=== PATIENT | female | born 1945 | race Hispanic/Latino ===

== ENCOUNTER → 2016-12-25 | Outpatient (CLI) | payer OTHER ==
[2016-12-26 08:59] LABS: HEMOGLOBIN 14.6 g/dL (12.0-16.0)
[2016-12-26 09:03] LABS: HEMATOCRIT 44.5 % (37.0-47.0); MEAN CORPUSCULAR HEMOGLOBIN 28.7 PG (27-31); MEAN CORPUSCULAR HGB CONC 32.8 g/dL (33-37); RDW COEFFICIENT OF VARIATION 13.5 % (11.5-14.5); RED BLOOD COUNT 5.08 10^6/uL (4.20-5.40)
[2016-12-26 09:14] LABS: ASPARTATE AMINO TRANSFERASE 36 IU/L (8-39); BILIRUBIN,TOTAL 0.7 mg/dL (0.3-1.2); BLOOD UREA NITROGEN 34 mg/dL (7-22); BUN/CREATININE RATIO 22.66 (6-20); CALCIUM 10.2 mg/dL (8.7-10.7); CHLORIDE 105 meq/L (98-112); CREATININE 1.5 mg/dL (0.50-1.20); GLUCOSE 270 mg/dL (78-110); HDL CHOLESTEROL 60 mg/dL (40-150); POTASSIUM 4.9 meq/L (3.8-5.2); SODIUM 139 meq/L (135-145); TOTAL PROTEIN 7.1 g/dL (6.1-8.0); TRIGLYCERIDES 150 mg/dL (44-200)
[2016-12-26 09:32] LABS: HEMOGLOBIN A1C 10.44 % (4.2-6.0); MEAN BLOOD GLUCOSE (CALC) 261.652 mg/dL
[2016-12-26 09:39] LABS: PLATELET MORPHOLOGY COMMENT NORMAL MORPHOLOGY (NORM)
[2016-12-26 10:00] LABS: BAND NEUTROPHILS % 4 % (0-10); BASOPHILS % (MANUAL) 0 % (0-1); EOSINOPHILS % (MANUAL) 0 % (0-8); LYMPHOCYTES % (MANUAL) 28 % (10-50); METAMYELOCYTES % 0 %; MONOCYTES % (MANUAL) 6 % (0-12); MYELOCYTES % 0 %; NEUTROPHILS % (MANUAL) 61 % (50-80); PROMYELOCYTES % 0 %
== END ==
LOC: LAB 07:56
PROVIDERS: ATTEND Internal Medicine
DX: E11.9 Type 2 diabetes mellitus without complications (principal); E78.5 Hyperlipidemia, unspecified; I10 Essential (primary) hypertension
CPT/HCPCS: 36415; 80053; 80061; 83036; 84443; 85007

== ENCOUNTER → 2017-03-25 | Outpatient (CLI) | payer OTHER ==
[2017-03-25 08:35] LABS: HEMOGLOBIN A1C 8.61 % (4.2-6.0)
[2017-03-25 09:27] LABS: CREATININE, URINE 74.9 MG/DL (15-500)
== END ==
LOC: LAB 07:57
PROVIDERS: ATTEND Internal Medicine
DX: E11.9 Type 2 diabetes mellitus without complications (principal)
CPT/HCPCS: 36415; 82043; 83036

== ENCOUNTER → 2017-04-21 | Outpatient (CLI) | payer OTHER ==
[2017-04-21 13:49] LABS: BLOOD UREA NITROGEN 45 mg/dL (7-22); BUN/CREATININE RATIO 26.47 (6-20); CALCIUM 9.7 mg/dL (8.7-10.7); SERUM ALBUMIN 4.1 g/dL (3.5-4.8)
[2017-04-21 13:51] LABS: CLARITY,URINE SLIGHTLY CLOUDY (CLEAR); COLOR,URINE YELLOW; PH,URINE 5.5 (5.0-8.5); PROTEIN,URINE TRACE mg/dl (NEG); URINE SAMPLE TYPE VOIDED SPECIMEN
[2017-04-21 13:51] LABS: HEMATOCRIT 43.6 % (37.0-47.0); HEMOGLOBIN 14.1 g/dL (12.0-16.0); MEAN CORPUSCULAR VOLUME 88.4 FL (81-99); RED BLOOD COUNT 4.93 10^6/uL (4.20-5.40)
[2017-04-21 13:52] LABS: GLUCOSE, URINE (UA) >=1000 mg/dL (NEG); NITRATE,URINE NEGATIVE (NEG); OCCULT BLOOD,URINE NEGATIVE (NEG)
[2017-04-21 13:52] LABS: BASOPHILS # (AUTO) 0.05 10*3/UL; BASOPHILS % (AUTO) 0.4 % (0-1); EOSINOPHILS # (AUTO) 0.11 10*3/UL; EOSINOPHILS % (AUTO) 0.9 % (0-8); LYMPHOCYTES # (AUTO) 2.51 10*3/uL; MEAN CORPUSCULAR HEMOGLOBIN 28.6 PG (27-31); MEAN CORPUSCULAR HGB CONC 32.3 g/dL (33-37); MEAN PLATELET VOLUME 11.8 FL (7.4-12.2); MONOCYTES # (AUTO) 0.53 10*3/UL (0.3-0.8); MONOCYTES % (AUTO) 4.4 % (5-15); NEUTROPHILS # (AUTO) 8.72 10*3/UL; NEUTROPHILS % (AUTO) 73.1 % (50-80); PLATELET MORPHOLOGY COMMENT NORMAL MORPHOLOGY (NORM); RBC MORPHOLOGY COMMENT NORMAL MORPHOLOGY (NORM); WBC MORPHOLOGY COMMENT NORMAL MORPHOLOGY (NORM)
[2017-04-21 13:53] LABS: BILIRUBIN,URINE LARGE (NEG); SQUAMOUS EPITHELIAL CELL,UR FEW; URINE CASTS FEW; UROBILINOGEN,URINE 0.2 mg/dL (0.2); WBC,URINE 25-30
[2017-04-21 13:54] LABS: BACTERIA,URINE FEW
== END ==
LOC: MOB LAB 11:43
PROVIDERS: ATTEND Internal Medicine
DX: R10.32 Left lower quadrant pain (principal); I10 Essential (primary) hypertension; E78.5 Hyperlipidemia, unspecified; R82.99 Other abnormal findings in urine
CPT/HCPCS: 36415; 80053; 81001; 85025; 87088

== ENCOUNTER → 2017-05-01 | Outpatient (CLI) | payer OTHER ==
--- NOTE | 2017-05-01 14:49 | DI ---
CT ABDOMEN SCAN WITHOUT IV CONTRAST, 05/01/2017 2:01 PM : Clinical History: Abdominal pain. Previous Exam: None at this facility. Scans are performed from the lower lung bases through the liver and kidneys without IV contrast. No o ral contrast was ordered. The lung bases are clear. The liver, spleen, pancreas, and adrenal glands are normal. The gallbladder is grossly normal. Both kidneys are normal in size, shape, position and contour. There is no hydrone phrosis or hydroureter. No renal or ureteral calculi are present. There are no abnormal retrocrural o r periaortic nodes. There is no ascites. READING: Normal noncontrast CT abdomen scan.
== END ==
LOC: CT 13:54
PROVIDERS: ATTEND Internal Medicine
DX: R10.84 Generalized abdominal pain (principal)
CPT/HCPCS: 74150

== ENCOUNTER 2017-11-04 06:31 | Inpatient (IN) ==
[2017-11-04] MEDS ORDERED: Sodium Chloride 0.9% 1,000 ML PRIMARY IV ONE (06:48)
[2017-11-04] MEDS ORDERED: NORMAL SALINE 10 ML SYRINGE FLUSH IVP PRN (06:48)
[2017-11-04] MEDS ORDERED: ASPIRIN 81 MG (BABY) CHEWABLE TABLET PO ONE (06:48)
--- NOTE | 2017-11-04 06:51 | EKG ---
[address] [address] Measurements Intervals [place] Rate: 86 P: 50 AK: 183 QRS: -13 QRSD: 83 T: -8 QT: 338 QTc: 382 Interpretive Statements SINUS RHYTHM POSSIBLE RIGHT VENTRICULAR CONDUCTION DELAY [RSR (QR) IN V1/V2] SEPTAL MYOCARDIAL INFARCTION [40+ ms Q WAVE IN V1/V2], OF INDETERMINATE AGE INFERIOR MYOCARDIAL INFARCTION [40+ ms Q WAVE AND/OR ST/T ABNORMALITY IN II/aVF], OF INDETERMINATE AGE INTERPRETATION BASED ON A DEFAULT AGE OF 40 YEARS No previous ECG available for comparison Electronically Signed On 11-04-17 08:13:01 [facility] by Adolph Brower MD [email or web address]
[2017-11-04 06:55] LABS: Hematocrit [HCT] 43.4 % (37.0-47.0); Hemoglobin [HGB] 14.4 g/dL (12.0-16.0); MEAN CORPUSCULAR HEMOGLOBIN 29.2 PG (27-31); MEAN CORPUSCULAR HGB CONC 33.1 g/dL (33-37); MEAN CORPUSCULAR VOLUME 88 FL (81-99); MEAN PLATELET VOLUME 7.9 FL (7.4-12.2); RED BLOOD COUNT 4.92 10^6/uL (4.20-5.40)
[2017-11-04 06:56] LABS: BASOPHILS # (AUTO) 0.05 10*3/UL; BASOPHILS % (AUTO) 0.5 % (0-1); EOSINOPHILS # (AUTO) 0.24 10*3/UL; EOSINOPHILS % (AUTO) 2.5 % (0-8); MONOCYTES # (AUTO) 0.47 10*3/UL (0.3-0.8); MONOCYTES % (AUTO) 4.9 % (5-15); NEUTROPHILS # (AUTO) 6.15 10*3/UL; PLATELET MORPHOLOGY COMMENT NORMAL MORPHOLOGY (NORM); RBC MORPHOLOGY COMMENT NORMAL MORPHOLOGY (NORM); WBC MORPHOLOGY COMMENT NORMAL MORPHOLOGY (NORM)
[2017-11-04] MEDS: NITROGLYCERIN 0.4 MG SL TAB (BOTTLE OF 3) SL PRN ×3 (06:56→07:08)
--- NOTE | 2017-11-04 07:06 | PDOC ---
Chest Pain HPI - General Chief Complaint: Chest Pain Stated Complaint: chest pain Date Seen by Provider: 11/04/17 Time Seen by Provider: 06:40 Source: Patient Exam Limitations: POSITIVE: No limitations Treatment Prior to Arrival: REPORTS: None Nurse's Notes Reviewed & Considered: Yes - History of Present Illness Initial Comments: The patient is a 72-year-old female who presents to the emergency department with complaints of chest pain. She states that off and on for the past week or so she has had some pain in her lower chest. This morning when she woke up she had a sharper pain in her lower chest. This pain is somewhat worsened when she takes a deep breath. She does not have any associated palpitations, lightheadedness or shortness of breath. She tried to go to work however the pain seemed to be intensifying so she came here to the emergency department. She states that at its worst the pain was about an 8 out of 10. She states that the pain has let up somewhat now however she still has a pressure in the center of her chest. She does not have any known history of heart disease. She is diabetic and has a history of hypertension. She states that normally her blood pressure is well controlled on medication. She denies any recent illness and denies any pain or swelling in her legs. She states that her current pain started after Thanksgiving and she thought initially that she probably just ate too much and had some indigestion. - Patient Home Medications Home Medications: Home Medications Aspirin 81 mg ORAL QD #90 tab 12/18/12 Zyrtec 10 mg PO QD 30 Days 12/18/12 Albuterol Sulfate [Proventil Hfa] 1 - 2 puff INH Q4-6H #1 puff 05/22/16 Blood Sugar Diagnostic [Glucose Test Strip] 1 ea IN QID #120 ea 05/22/16 Lancing Device [Lancet Device] 1 ea QID #120 ea 05/22/16 Mometasone Furoate [Nasonex] 2 spr INASL DAILY #4 spr 05/22/16 acebutolol 200 mg capsule 200 mg PO QD #30 cap 08/11/17 canagliflozin 300 mg tablet 300 mg PO DAILY #30 tab 08/11/17 etodolac ER 500 mg tablet,extended release 24 hr 500 mg PO QD #30 tab 08/11/17 glipizide 10 mg tablet 20 mg PO BID #120 tab 08/11/17 hydrochlorothiazide 25 mg tablet 25 mg PO QD #30 tab 08/11/17 liraglutide 0.6 mg/0.1 mL (18 mg/3 mL) subcutaneous pen injector 1.8 mg SUBCUT DAILY #3 ml 08/11/17 metformin 1,000 mg tablet 1,000 mg PO BID #60 tab 08/11/17 montelukast 10 mg tablet 10 mg PO QD #30 tab 08/11/17 pantoprazole 40 mg tablet,delayed release 40 mg PO QD #30 tab 08/11/17 simvastatin 40 mg tablet 40 mg PO QHS #30 tab 08/11/17 losartan 100 mg tablet 100 mg PO QDAY #30 tab 09/08/17 pen needle, diabetic 31 gauge x /16" 2 ea MISCELLANEOUS QD #100 ea 09/08/17 insulin degludec 100 unit/mL (3 mL) subcutaneous pen 20 unit SUBCUT QHS #600 unit 09/16/17 - Patient Allergies Allergies/Adverse Reactions: Allergies 3 Allergy/AdvReac Type Severity Reaction Status Date / Time No Known Drug Allergies Allergy NOT Verified 11/04/17 06:39 APPLICABLE Past Medical History - heen HEENT History: Cataracts Cardiovascular History: Hypertension, Hyperlipidemia Respiratory History: Denies History Gastrointestinal History: Denies History Genitourinary History: Denies History Endocrine History: Type 2 Diabetes (oral) Musculoskeletal History: Denies History Neurological History: Motion Sickness Blood Disorders: Denies History Psychiatric History: Denies History Cancer History: Denies History Alcohol Use: None In the Past 12 Months, Have Used or Abuse Any Substance: None Past Medical History Reviewed: Reviewed - No Changes ROS - Limitations ROS Limitations: No Limitations Constitution: DENIES: Chills, Fever Cardiovascular: REPORTS: Chest Pain. DENIES: Heart Racing, Heart Palpitations, Blood Pressure Problem, Edema Respiratory: REPORTS: Hurts To Breathe. DENIES: Cough Non Productive, Cough Productive, Shortness Of Breath Neurological: REPORTS: Denies Neuro Symptoms Gastrointestinal: REPORTS: Nausea. DENIES: Vomitting, Diarrhea Endocrine: REPORTS: Denies Symptoms Musculoskeletal: DENIES: Calf Pain, Lower Extremity Swelling Chest Pain PE - General Appearance General Appearance: REPORTS: Alert, Cooperative, No Acute Distress - HEENT HEENT: POSITIVE: Head Inspection Nml, Eyes Inspection Nml, Ears Inspection Nml - Respiratory Respiratory: REPORTS: No Respiratory Distress, Breath Sounds Normal - Cardiovascular Cardiovascular: REPORTS: Regular Rate and Rhythm, Heart Sounds Normal Peripheral Pulses: Dorsalis-pedis (R): 2+, Dorsalis-pedis (L): 2+ - Abdomen Abdomen: Soft: (All Quadrants), Denies Tenderness: (All Quadrants), No Distention: (All Quadrants) - Skin Skin: REPORTS: Intact, No Rash - Extremities Extremity: Normal ROM: (All Extremities), Normal Inspection: (All Extremities) - Neurological / Psychological Neurological: POSITIVE: Oriented X3, Motor Normal, Sensation Normal Chest Pain Progress - Results Reviewed by me Xrays/CTs/US Reviewed by me: Yes Radiology Findings: Chest x-ray shows normal heart size and normal lung barillas. Lab Results Reviewed by Me: Yes CBC and BMP: 11/04/17 06:48 11/04/17 06:40 EKG Interpreted/Reviewed By Me:: Yes EKG Interpretation:: POSITIVE: Normal Sinus Rhythm, Normal Rate, Normal QRS, Normal ST/T - Patient's Progress MDM / ED Course: The patient was hypertensive on arrival with a blood pressure of 180/108. Her initial EKG shows normal sinus rhythm with no acute ST segment changes, she does have some Q waves in the inferior leads, no previous EKGs are available for comparison. She was given aspirin per chest pain protocol and in addition was given sublingual nitroglycerin. Her pain improved down to a 1 out of 10 and her blood pressure came down with administration of nitroglycerin. Her initial troponin is normal. Her d-dimer is slightly elevated. Her creatinine is also borderline at 1.3. She did receive a fluid bolus and she underwent CTA of the chest to rule out PE. This was subsequently negative for PE per radiologist. No other acute findings were noted. These findings were discussed with the patient. The patient does have multiple risk factors for coronary artery disease and it was felt that the best plan would be for admission and further cardiac monitoring and testing. Dr. Rubin has agreed to admit the patient. - Consult Counseled: POSITIVE: Patient, Family, RE: Lab Results, RE: Radiology Results, RE : DX Patient Care Time - Estimated PCT Patient Care Time (In Minutes): 40 Vital Signs - Recent Vital Signs Vital Signs: Vital Signs (Last 8 hours) Temp Pulse Pulse Pulse Pulse Resp BP 11/04/17 06:42 86 11/04/17 06:31 98.2 F 86 80 86 86 20 182/100 Pulse Ox 11/04/17 06:42 11/04/17 06:31 97 - VS Reviewed Vital Signs Reviewed: Yes Discharge Clinical Impression: Chest pain Discharge Disposition: Admit to Observation Condition: Stable Follow Up With: JOHN BROCK [Primary Care Provider] -
[2017-11-04 07:18] LABS: BLOOD UREA NITROGEN 28 mg/dL (7-22); BUN/CREATININE RATIO 21.53 (6-20); LIPASE 119 IU/L (23-300); MAGNESIUM 1.8 mg/dL (1.6-2.4); SERUM ALBUMIN 4.2 g/dL (3.5-4.8)
--- NOTE | 2017-11-04 08:10 | DI ---
XR CXR 1VW,11/04/2017 6:48 AM: Clinical History: Chest pain Previous Exam: None at this facility. Findings: A single frontal radiograph of the chest is obtained, and demonstrates clear lungs. The cardiomediast inum and bony thorax are unremarkable. Overlying EKG leads are seen. Mild degenerative changes of the acromioclavicular joints are noted. Impression: No acute cardiopulmonary disease.
--- NOTE | 2017-11-04 08:43 | DI ---
CT CTA Chest Non-Coronary [facility],11/04/2017 7:46 AM: Clinical History: Chest pain and elevated d-dimer. Previous Exam: None at this facility. Findings: Multiple helically acquired CT images are obtained through the chest following the intravenous admini stration of 75 cc of Isovue 370, and demonstrate some mild subsegmental atelectasis in the lung bases . The pulmonary arteries are normal without filling defect or truncation to suggest pulmonary embolis m. The thyroid is also unremarkable. Skeletal structures are unremarkable as well. There is no infiltrate nor effusion. Impression: No evidence of pulmonary embolism.
--- NOTE | 2017-11-04 09:16 | PDOC ---
HPI - History of Present Illness History of Present Illness: This very nice 72-year-old female with past medical history significant for diabetes on multiple medications orally and insulin comes to the emergency room complaining of chest pain this morning when she woke up she had a sharp pain which got worse when she took a deep breath no nausea no vomiting no palpitation no lightheadedness the pain is continuously got worse and decided to go to the emergency department. She was given nitroglycerin because of her elevated blood pressure she does have a history of hypertension the pain is improved Past Medical History Medical History: Hypertension, diabetes Tobacco Use: Never Smoker In the Past 12 Months, Have Used or Abuse Any of the Following Substance: None Medication / Allergies Home Medications: Home Medications Medication Instructions Recorded Confirmed Type Aspirin 81 mg ORAL QD #90 tab 12/18/12 11/04/17 History Zyrtec 10 mg PO QD 30 Days 12/18/12 11/04/17 Clinic Albuterol Sulfate [Proventil Hfa] 1 - 2 puff INH Q4-6H #1 puff 05/22/16 History Blood Sugar Diagnostic [Glucose 1 ea IN QID #120 ea 05/22/16 11/04/17 History Test Strip] Lancing Device [Lancet Device] 1 ea MC QID #120 ea 05/22/16 11/04/17 History Mometasone Furoate [Nasonex] 2 spr INASL DAILY #4 spr 05/22/16 11/04/17 History acebutolol 200 mg capsule 200 mg PO QD #30 cap 08/11/17 11/04/17 Rx canagliflozin 300 mg tablet 300 mg PO DAILY #30 tab 08/11/17 11/04/17 Rx etodolac ER 500 mg tablet,extended 500 mg PO QD #30 tab 08/11/17 11/04/17 Rx release 24 hr glipizide 10 mg tablet 20 mg PO BID #120 tab 08/11/17 11/04/17 Rx hydrochlorothiazide 25 mg tablet 25 mg PO QD #30 tab 08/11/17 11/04/17 Rx liraglutide 0.6 mg/0.1 mL (18 mg/3 1.8 mg SUBCUT DAILY #3 ml 08/11/17 11/04/17 Rx mL) subcutaneous pen injector metformin 1,000 mg tablet 1,000 mg PO BID #60 tab 08/11/17 11/04/17 Rx montelukast 10 mg tablet 10 mg PO QD #30 tab 08/11/17 11/04/17 Rx pantoprazole 40 mg tablet,delayed 40 mg PO QD #30 tab 08/11/17 11/04/17 Rx release simvastatin 40 mg tablet 40 mg PO QHS #30 tab 08/11/17 11/04/17 Rx losartan 100 mg tablet 100 mg PO QDAY #30 tab 09/08/17 11/04/17 Rx pen needle, diabetic 31 gauge x 2 ea MISCELLANEOUS QD #100 ea 09/08/17 11/04/17 Rx 5/16" insulin degludec 100 unit/mL (3 20 unit SUBCUT QHS #600 unit 09/16/17 11/04/17 Rx mL) subcutaneous pen insulin glargine 300 unit/mL (1.5 #2 Samples 09/16/17 Sample mL) subcutaneous pen Allergies/Adverse Reactions: Allergies 3 Allergy/AdvReac Type Severity Reaction Status Date / Time No Known Drug Allergies Allergy NOT Verified 11/04/17 06:39 APPLICABLE Review of Systems - Review of Systems All Systems: Reviewed & No Additional Complaints Except as Stated - Cardiovascular Cardiovascular: REPORTS: Chest Pain - Gastrointestinal Gastrointestinal / Abdominal: DENIES: Negative System Review, Nausea, Vomiting, Diarrhea, Constipation, Abdominal Pain, Bloody Stool, Poor Appetite, Heartburn, Regurgitation, Bloating, Lactose Intolerance, Melena, Bright Red Blood per Rectum, Other, See HPI - Genitourinary Genitourinary: DENIES: Negative System Review, Pain, Burning, Hematuria, Incontinence, Urgency, Hesitant Stream, Decreased Stream, Nocutria, Discharge, Sexual Dysfunction, Other, See HPI Exam - Vitals Vital Signs: Vital Signs Temperature 98.2 F Temperature Source Temporal Artery Scan Pulse Rate [Pulse Oximeter 86 Right] Pulse Rate [Apical] 80 Pulse Rate [Telemetry] 86 Pulse Rate 86 Respiratory Rate 20 Blood Pressure [Left Arm] 182/100 Pulse Ox 97 Oxygen Delivery Method Room Air Height 5 ft 3 in Weight 200 lb - General General Appearance: No Acute Distress, Cooperative - Eye Eye Exam: POSITIVE: Normal Appearance, PERRL, EOMI, No Scleral Icterus - Neck Neck Exam: Normal Inspection, Full ROM, No Tenderness, No Lymphadenopathy, No Thyromegaly, JVP is not Raised - Respiratory Respiratory Exam: POSITIVE: Clear to Auscultation - Bilaterally, Breathing Non Labored, Normal To Percussion, Normal to Percussion and Palpation - Cardiovascular Cardiovascular Exam: POSITIVE: RRR, No Murmur, No Clicks, No Gallops, No Rubs, PMI Non-Displaced - GI/Abdominal GI/Abdominal Exam: POSITIVE: Normal Bowel Sounds, Non Tender, Non Distended, Soft, No Masses, No Hepatomegaly, No Splenomegaly, No Organomegaly - Extremities Extremities Exam: POSITIVE: Normal Inspection, Full ROM, Normal Capillary Refill , No Clubbing Present, No Edema Present, No Cyanosis Present, Negative Alden's sign, Dosalis Pedis Pulses - Stong & Regular Results - Labs CBC and BMP: 11/04/17 06:48 11/04/17 06:40 Assessment and Plan - Patient Problems (1) HILL (acute kidney injury) Current Visit: Yes Status: Acute Comment: hold diabetic meds Invokana can cause acute renal failure also she will need a Lexiscan stress test and will be receiving dye will need to fix creatinine and BUN before we will order stress test. Code(s): N17.9 - Acute kidney failure, unspecified (2) Diabetes 1.5, managed as type 1 Current Visit: Yes Status: Acute Comment: Hold the all oral medications as they can cause side effects like acute renal failure we'll start sliding scale Code(s): E10.9 - Type 1 diabetes mellitus without complications (3) Chest pain Current Visit: Yes Status: Acute Comment: Suggest once the renal function is improved Code(s): R07.9 - Chest pain, unspecified
[2017-11-04] MEDS ORDERED: ONDANSETRON 4 MG/2 ML VIAL IVP PRN (09:46)
[2017-11-04] MEDS ORDERED: CALCIUM CARBONATE 500 MG (TUMS) CHEWABLE TABLET PO PRN (09:46)
[2017-11-04] MEDS ORDERED: LIDOCAINE W/ SODIUM BICARB 0.5 ML SYR SUBD PRN (09:46)
[2017-11-04] MEDS: ASPIRIN 81 MG (BABY) CHEWABLE TABLET PO SCH (12:18)
[2017-11-04] MEDS: HYDROCHLOROTHIAZIDE 25 MG TABLET PO SCH (12:18)
[2017-11-04] MEDS: ACEBUTOLOL HCL 200 MG PO SCH (12:18)
[2017-11-04] MEDS: PANTOPRAZOLE 40 MG TABLET PO SCH (12:19)
[2017-11-04] MEDS: NORMAL SALINE 10 ML SYRINGE FLUSH IVP PRN (12:45)
[2017-11-04] MEDS: Simvastatin Tab 40 MG TAB PO SCH (20:42)
[2017-11-04] MEDS: [UNRECOGNIZED DRUG - OTHER] SUBCUT SCH (20:42)
[2017-11-05 07:18] LABS: BLOOD UREA NITROGEN 20 mg/dL (7-22); SERUM ALBUMIN 3.3 g/dL (3.5-4.8)
--- NOTE | 2017-11-05 08:34 | PDOC(PROG) ---
Objective : Data - Labs CBC and BMP: 11/04/17 06:48 11/05/17 06:52 Assessment and Plan - Patient Problems (1) HILL (acute kidney injury) Current Visit: Yes Status: Acute Comment: Resolved most likely prerenal I will stop IV fluids were K Code(s): N17.9 - Acute kidney failure, unspecified (2) Diabetes 1.5, managed as type 1 Current Visit: Yes Status: Acute Comment: Stable Code(s): E10.9 - Type 1 diabetes mellitus without complications (3) Chest pain Current Visit: Yes Status: Acute Comment: Pollens are negative 3 I will talk to the patient about her stress test since we are unable to do a Lexiscan stress test tomorrow Code(s): R07.9 - Chest pain, unspecified
[2017-11-05] MEDS ORDERED: MOMETASONE FUROATE ENOS PRN (09:00)
[2017-11-05] MEDS ORDERED: MOMETASONE FUROATE ENOS SCH (09:00)
[2017-11-05] MEDS: HYDROCHLOROTHIAZIDE 25 MG TABLET PO SCH (09:40)
[2017-11-05] MEDS: ASPIRIN 81 MG (BABY) CHEWABLE TABLET PO SCH (09:40)
[2017-11-05] MEDS: PANTOPRAZOLE 40 MG TABLET PO SCH (09:41)
[2017-11-05] MEDS: ACEBUTOLOL HCL 200 MG PO SCH (09:51)
[2017-11-05] MEDS ORDERED: Glucagon Inj Vial 1 MG/ML VIAL IM PRN ×2 (11:27→17:26)
[2017-11-05] MEDS ORDERED: DEXTROSE 31 GM GEL PO PRN ×2 (11:27→17:26)
[2017-11-05] MEDS ORDERED: DEXTROSE 50%-WATER SYRINGE 50 ML SYRINGE IVP PRN ×2 (11:27→17:26)
[2017-11-05] MEDS ORDERED: Insulin Sliding Scale Protocol SUBCUT PRN ×2 (11:27→17:26)
[2017-11-05] MEDS ORDERED: Insulin Lispro Flexpen 300 UNIT/3 ML INSULN.PEN SUBCUT SCH ×2 (11:28→18:00)
[2017-11-05] MEDS ORDERED: Influenza 17-18 Vaccine (6mo+) Quad 60mcg/0.5ml PF IM ONE (14:00)
[2017-11-05] MEDS: Sodium Chloride 0.9% 1,000 ML PRIMARY IV SCH (17:17)
[2017-11-05] MEDS: Simvastatin Tab 40 MG TAB PO SCH (21:14)
[2017-11-05] MEDS: Insulin Lispro Flexpen 300 UNIT/3 ML INSULN.PEN SUBCUT SCH (21:26)
[2017-11-05] MEDS: [UNRECOGNIZED DRUG - OTHER] SUBCUT SCH (21:30)
[2017-11-06] MEDS: Sodium Chloride 0.9% 1,000 ML PRIMARY IV SCH (06:07)
[2017-11-06 06:46] LABS: BLOOD UREA NITROGEN 19 mg/dL (7-22); SERUM ALBUMIN 3.4 g/dL (3.5-4.8)
[2017-11-06] MEDS: Insulin Lispro Flexpen 300 UNIT/3 ML INSULN.PEN SUBCUT SCH ×4 (08:20→20:31)
[2017-11-06] MEDS: ACEBUTOLOL HCL 200 MG PO SCH (09:30)
[2017-11-06] MEDS: HYDROCHLOROTHIAZIDE 25 MG TABLET PO SCH (09:32)
[2017-11-06] MEDS: ASPIRIN 81 MG (BABY) CHEWABLE TABLET PO SCH (09:32)
[2017-11-06] MEDS: PANTOPRAZOLE 40 MG TABLET PO SCH (09:33)
--- NOTE | 2017-11-06 18:59 | DI ---
EXAM: US Abdomen Limited, Right Upper Quadrant CLINICAL HISTORY: Physician Notes: Tech Comments: TECHNIQUE: Real-time ultrasound of the right upper quadrant with image documentation. COMPARISON: CT 05/01/17 FINDINGS: Liver: Hepatomegaly, 19.8 cm. Echogenic liver suggesting fatty infiltration or hepatocellular disease. Gallbladder: No gallstones or biliary ductal dilatation. Common bile duct: Unremarkable as visualized. Common bile duct measures 4 mm Pancreas: Pancreas is obscured. Right kidney: Right kidney measures 10.6 cm. No hydronephrosis. Aorta: Limited assessment. No apparent aneurysm. IMPRESSION: Hepatomegaly, 19.8 cm. Echogenic liver suggesting fatty infiltration or hepatocellular disease. No gallstones or biliary ductal dilatation.
[2017-11-06] MEDS: Simvastatin Tab 40 MG TAB PO SCH (20:30)
[2017-11-06] MEDS: [UNRECOGNIZED DRUG - OTHER] SUBCUT SCH (20:31)
--- NOTE | 2017-11-06 23:46 | PDOC(PROG) ---
Date and Time of Service: 11/06/2017, 1700 Interval History: had some epigastric/low chest pain described as mild present this afternoon. no SOB, no nausea or vomiting. willing to do a stress test here. Objective : Data - Labs CBC and BMP: 11/04/17 06:48 11/06/17 05:36 Additional Lab Results: Selected Entries 11/05/17 06:52 11/05/17 11:00 11/05/17 21:00 Finger Stick Blood Glucose 194 H 253 H 335 H 11/06/17 07:00 11/06/17 12:37 11/06/17 16:00 Finger Stick Blood Glucose 211 H 257 H 181 H Objective : Exam - General General Appearance: No Acute Distress, Cooperative Additional General Exam Details: Vital Signs (24 hrs) Temp Pulse Pulse Pulse Resp BP Pulse Ox 11/06/17 20:40 97.8 F 72 20 147/68 96 11/06/17 19:00 72 77 11/06/17 17:00 97.5 F 70 20 161/68 98 11/06/17 15:00 71 11/06/17 13:00 97.7 F 73 20 157/81 99 11/06/17 11:00 72 11/06/17 09:00 97.6 F 72 20 126/64 96 11/06/17 07:00 65 11/06/17 05:00 97.7 F 70 14 130/69 96 11/06/17 03:00 70 11/06/17 00:30 97.2 F 76 22 152/77 97 - Eye Eye Exam: No Scleral Icterus - ENT ENT Exam: Mucous Membranes Moist - Respiratory Respiratory Exam: Clear to Auscultation - Bilaterally, Breathing Non Labored - Cardiovascular Cardiovascular Exam: RRR, No Murmur, No Clicks, No Gallops, No Rubs, No JVD Additional Cardiovascular Details: pain is not reproduced with palpation. - GI/Abdominal GI/Abdominal Exam: Normal Bowel Sounds, Non Tender, Non Distended, Soft - Extremities Extremities Exam: No Clubbing Present, No Edema Present, No Cyanosis Present - Neurological Neurological Exam: Alert, Oriented x 3, No Facial Droop, Speech Intact / Clear, Moves All Extremities Equally - Psychiatric Psychiatric Exam: Normal Affect, Normal Mood Assessment and Plan - Patient Problems (1) Chest pain Current Visit: Yes Status: Acute Code(s): R07.9 - Chest pain, unspecified (2) HILL (acute kidney injury) Current Visit: Yes Status: Resolved Code(s): N17.9 - Acute kidney failure, unspecified (3) Diabetes 1.5, managed as type 1 Current Visit: Yes Status: Acute Code(s): E10.9 - Type 1 diabetes mellitus without complications (4) HTN (hypertension) Current Visit: Yes Status: Acute Code(s): I10 - Essential (primary) hypertension Qualifiers: Hypertension type: essential hypertension Qualified Code(s): I10 - Essential (primary) hypertension - Assessment / Plan Additional Assessment/Plan Details: may need to adjust insulins, but will also recheck HbA1c check fasting lipids in AM stress test (chemical stress test) patient wondered about GERD, I got an ultrasound to check for cholecystitis ( acute) and it was suggestive of fatty liver disease. It could be reflux, but heartburn symptoms not prevalent for patient overall. I would like to make sure we are not seeing evidence for CAD first, then consider PPI trial.
[2017-11-07 06:42] LABS: HEMOGLOBIN A1C 8.82 % (4.2-6.0)
[2017-11-07] MEDS: Insulin Lispro Flexpen 300 UNIT/3 ML INSULN.PEN SUBCUT SCH ×4 (07:27→20:10)
[2017-11-07] MEDS: ACEBUTOLOL HCL 200 MG PO SCH (09:36)
[2017-11-07] MEDS: HYDROCHLOROTHIAZIDE 25 MG TABLET PO SCH (09:37)
[2017-11-07] MEDS: PANTOPRAZOLE 40 MG TABLET PO SCH (09:37)
[2017-11-07] MEDS: ASPIRIN 81 MG (BABY) CHEWABLE TABLET PO SCH (09:37)
[2017-11-07] MEDS ORDERED: LORazepam 2 MG/1 ML VIAL IVP ONE (09:54)
[2017-11-07 10:45] LABS: CHOL/HDL RATIO 2.6 RATIO (0-4.0)
[2017-11-07] MEDS: NORMAL SALINE 10 ML SYRINGE FLUSH IVP PRN (11:24)
[2017-11-07] MEDS: Simvastatin Tab 40 MG TAB PO SCH (20:06)
[2017-11-07] MEDS: [UNRECOGNIZED DRUG - OTHER] SUBCUT SCH (20:06)
[2017-11-07] MEDS ORDERED: INSULIN DEGLUDEC 25 UNIT SUBCUT SCH (20:40)
--- NOTE | 2017-11-07 20:44 | PDOC(PROG) ---
Date and Time of Service: 11/07/2017, 2039 Interval History: seen and evalutated twice today. has had some pressure that has gotten better in mid epigastric area, lower sternal region. no N/V. SOB is not present. wants a clear list or plan for DM and is okay using insulin to cut down pill burden. Objective : Data - Labs CBC and BMP: 11/04/17 06:48 11/06/17 05:36 Additional Lab Results: Selected Entries 11/07/17 06:55 11/07/17 10:57 11/07/17 16:00 Finger Stick Blood Glucose 201 H 240 H 287 H Objective : Exam - General General Appearance: No Acute Distress, Cooperative Additional General Exam Details: Vital Signs (24 hrs) Temp Pulse Pulse Pulse Resp BP Pulse Ox 11/07/17 19:00 77 66 11/07/17 16:08 98.0 F 77 16 142/79 95 11/07/17 15:00 76 11/07/17 12:47 96.8 F 74 18 142/85 95 11/07/17 11:00 76 11/07/17 09:27 228/88 11/07/17 08:29 98.2 F 71 18 158/72 96 11/07/17 07:00 67 66 11/07/17 04:13 98.4 F 72 20 141/92 93 11/07/17 03:00 74 11/07/17 00:32 98.0 F 70 16 145/60 96 11/06/17 23:00 69 - Eye Eye Exam: No Scleral Icterus - ENT ENT Exam: Mucous Membranes Moist - Respiratory Respiratory Exam: Clear to Auscultation - Bilaterally, Breathing Non Labored - Cardiovascular Cardiovascular Exam: RRR, No Murmur, No Clicks, No Gallops, No Rubs, No JVD - GI/Abdominal GI/Abdominal Exam: Normal Bowel Sounds, Non Tender, Non Distended, Soft - Extremities Extremities Exam: No Clubbing Present, No Edema Present, No Cyanosis Present - Neurological Neurological Exam: Alert, Oriented x 3, No Facial Droop, Speech Intact / Clear, Moves All Extremities Equally - Psychiatric Psychiatric Exam: Normal Affect, Normal Mood Assessment and Plan - Patient Problems (1) Chest pain Current Visit: Yes Status: Acute Code(s): R07.9 - Chest pain, unspecified (2) HILL (acute kidney injury) Current Visit: Yes Status: Resolved Code(s): N17.9 - Acute kidney failure, unspecified (3) Diabetes 1.5, managed as type 1 Current Visit: Yes Status: Acute Code(s): E10.9 - Type 1 diabetes mellitus without complications (4) HTN (hypertension) Current Visit: Yes Status: Acute Code(s): I10 - Essential (primary) hypertension Qualifiers: Hypertension type: essential hypertension Qualified Code(s): I10 - Essential (primary) hypertension - Assessment / Plan Additional Assessment/Plan Details: increase long acting insulin will adjust meds accordingly, may still benefit from metformin, but caution with renal disease. resting phase of stress test tomorrow and await results. await lipid results.
[2017-11-08] MEDS ORDERED: LORazepam 2 MG/1 ML VIAL IVP SCH (01:15)
[2017-11-08] MEDS: Insulin Lispro Flexpen 300 UNIT/3 ML INSULN.PEN SUBCUT SCH ×2 (07:05→11:17)
[2017-11-08] MEDS: PANTOPRAZOLE 40 MG TABLET PO SCH (08:50)
[2017-11-08] MEDS: ASPIRIN 81 MG (BABY) CHEWABLE TABLET PO SCH (08:51)
[2017-11-08] MEDS: HYDROCHLOROTHIAZIDE 25 MG TABLET PO SCH (08:51)
[2017-11-08] MEDS: ACEBUTOLOL HCL 200 MG PO SCH (08:51)
[2017-11-08 08:52] VITALS: RESP 20
[2017-11-08] MEDS: NORMAL SALINE 10 ML SYRINGE FLUSH IVP PRN (10:20)
[2017-11-08 12:01] VITALS: BP 135/77; TEMP 98.4; O2SAT 93
--- NOTE | 2017-11-08 13:45 | DI ---
Exam: NM OTHER HISTORY: Chest pain TECHNIQUE: Lexiscan stress test imaging of the heart was performed with 0.4 mg per 5 cc of Lexiscan administered. Subsequently 37.3 mCi of sestamibi technetium 99m was administered for the stress dose. Multi planar imaging and axial vertical horizontal planes were obtained. 24 hours later rest imaging was performed with 34.8 mCi of sestamibi technetium 99m with 3 plane imaging obtained. COMPARISON EXAM: No prior examinations available. FINDINGS: In the lateral wall from the mid segment to base there is partial decreased perfusion on the stress images which is demonstrating partial reversibility on the rest portion of the study. At the apex there is partial decreased perfusion on the stress images however on the rest images the appearance of decreased perfusion is more pronounced. No other defects identified. Ejection fraction calculated at 79%. Wall motion appears normal. CONCLUSION: 1. In the lateral wall at the mid segment to base there is partial decreased perfusion on the stress images which is demonstrating partial reversibility on the rest portion of the study. 2. Small partial decreased perfusion appearance at the apex on the stress images however the rest images demonstrated this region to have them more pronounced perfusion defect. This does not appear to represent a reversible defect though there is decreased perfusion appearance at the apex on the stress study. 3. No other reversible or fixed defects. 4. Ejection fraction 79%. Normal wall motion. Critical [employer] 11/08/17 13:51 Verify Receipt with Nurse Verified receipt with BUSTER Charles on for LEXY [place] on 11/08 13:49 (-07:00)
--- NOTE | 2017-11-08 15:00 | DCSUMMARY ---
Hospitalization Summary Admit Date: 11/04/2017 Discharge Date: 11/08/17 Primary Diagnosis:: probable coronary artery disease with positive stress te Secondary Diagnosis:: Acute renal failure, resolved Hospital Course: This is a very pleasant 72-year-old female that was admitted on November 04 with complaints of chest pain and pressure that started at work during her work activities. 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 When she came in for evaluation, she is found to be hypertensive, and mild renal failure, and was admitted for further evaluation. She had several medications stopped due to her renal insufficiency and as that improved, we thought of potentially doing an outpatient stress test but the pressure came back. She had pressure in the mid epigastrium and lower substernal region. We did do a Lexiscan stress test which was positive for lateral wall motion abnormalities and possible apex abnormalities as well. The apex abnormalities might be an artifact. However, there were decreased perfusions on the rest images that were larger on that than the stress images which makes it somewhat questionable at the apex. That being said, with the positive findings in the lateral wall, the patient's presentation overall, her risk factors including diabetes mellitus type II, hypertension, we felt it would be best for the patient to proceed with heart catheterization with cardiology. I spoke with Dr. Wong at [facility] and he agreed to accept the patient. The patient would really like to work towards reducing her dependence on diabetes pills and using insulin as much as possible for her diabetes control to do that if possible. A CT scan of the chest was negative for PE. RUQ ultrasound was negative for acute cholecystitis, but the patient may have fatty liver disease. Patient's cholesterol is well-controlled with LDLs at 76. In discussion with Dr. Wong, we will hold off on heparinizing until the patient is at [facility]. Today, the patient denies any chest pain, shortness breath, nausea or vomiting. The plan above was discussed with her, and her 2 sons and they all agreed. Assessment and Plan: 1. As per discharge assessments noted 2. Disposition: Patient is discharged to [facility] 3. Condition on discharge, stable and improved. 4. Diet: regular diet 5. Activities: As per [facility] 6. Follow-Up: 1. Dr. Franco on 11/19/2017 2. 7. Medications at the Time of Discharge: Active Medications Generic Name Dose Route Start Last Admin Trade Name Freq PRN Reason Stop Dose Admin Aspirin 81 mg 11/04/17 09:46 11/08/17 08:51 Aspirin Chewable Tab PO 81 mg DAILY ANGELICA Administration Calcium Carbonate 1 - 2 tab 11/04/17 09:46 Tums PO QID PRN Heartburn Dextrose 30 - 40 ml 11/05/17 17:26 Dextrose 50% Inj IVP Q15M PRN BG < 70 unable to take oral Glucagon 1 mg 11/05/17 17:26 Glucagen IM ONCE PRN BG < 70 NPO & NO IV Glucose 15 - 20 gm 11/05/17 17:26 Insta-Glucose Gel PO Q15M PRN BG < 70 Hydrochlorothiazide 25 mg 11/04/17 09:46 11/08/17 08:51 Hydrodiuril PO 25 mg DAILY ANGELICA Administration Insulin Human Lispro 0 - 14 unit 11/05/17 21:00 11/08/17 11:17 Humalog Flexpen Inj SUBCUT 10 unit AC HS ANGELICA Administration Protocol Lidocaine HCl 0.5 ml 11/04/17 09:46 Lidocaine Buffered Inj SUBD ONCE PRN IV Starts Lorazepam 1 mg 11/08/17 01:15 11/08/17 10:21 Ativan Inj IVP 1 mg ONCE ANGELICA Administration Own Med : Acebutolol 200 mg 11/04/17 09:46 11/08/17 08:51 Hcl 200 Mg PO 200 mg DAILY ANGELICA Administration Own Med : Mometasone 2 spr 11/05/17 09:00 Furoate [Nasonex] [place] Nasal [place] DAILY PRN Congestion Non-Formulary Medication 25 unit 11/07/17 20:40 11/07/17 21:19 Insulin Degludec [Tresiba Flextouch U-100] SUBCUT Not Given BEDTIME ANGELICA Ondansetron HCl 4 mg 11/04/17 09:46 Zofran Inj IVP Q4H PRN NAUSEA / VOMITING Pantoprazole Sodium 40 mg 11/04/17 09:46 11/08/17 08:50 Protonix PO 40 mg DAILY ANGELICA Administration Simvastatin 40 mg 11/04/17 21:00 11/07/17 20:06 Zocor PO 40 mg BEDTIME ANGELICA Administration Sodium Chloride 5 - 20 ml 11/04/17 09:46 11/08/17 10:20 Saline Flush IVP 10 ml BID PRN Administration Flush 8. Time, care, counseling and coordination of care for this discharge is greater than 30 minutes. Exam - Vitals Vital Signs: Vital Signs Temperature 98.4 F Temperature Source Temporal Artery Scan Pulse Rate [Pulse Oximeter 71 Right] Pulse Rate [Telemetry] 76 Pulse Rate 69 Respiratory Rate 20 Blood Pressure [Left Arm] 135/77 Pulse Ox 93 Oxygen Delivery Method Room Air Height 5 ft 3 in Weight 203 lb 9.6 oz - General General Appearance: No Acute Distress, Cooperative - Eye Eye Exam: POSITIVE: No Scleral Icterus - ENT ENT Exam: POSITIVE: Mucous Membranes Moist - Respiratory Respiratory Exam: POSITIVE: Clear to Auscultation - Bilaterally, Breathing Non Labored - Cardiovascular Cardiovascular Exam: POSITIVE: RRR, No Murmur, No Clicks, No Gallops, No Rubs, No JVD - GI/Abdominal GI/Abdominal Exam: POSITIVE: Normal Bowel Sounds, Non Tender, Non Distended, Soft - Extremities Extremities Exam: POSITIVE: No Clubbing Present, No Edema Present, No Cyanosis Present - Neurological Neurological Exam: POSITIVE: Alert, Oriented x 3, No Facial Droop, Speech Intact / Clear, Moves All Extremities Equally Data Peritnent Studies: 11/04/17 11/04/17 11/05/17 12:58 18:41 00:33 Sodium Potassium Chloride Carbon Dioxide Anion Gap BUN Creatinine Glucose Mean Blood Glucose Hemoglobin A1c Calcium Total Bilirubin AST ALT Alkaline Phosphatase Troponin I < 0.012 < 0.012 < 0.012 Total Protein Albumin Globulin Triglycerides Cholesterol LDL Cholesterol, Calc VLDL Cholesterol HDL Cholesterol Cholesterol/HDL Ratio TSH 11/05/17 11/06/17 11/06/17 06:52 05:30 05:36 Sodium 139 Potassium 4.6 Chloride 108 Carbon Dioxide 20 L Anion Gap 11 BUN 19 Creatinine 1.0 Glucose 195 H Mean Blood Glucose 207.706 Hemoglobin A1c 8.82 H Calcium 9.3 Total Bilirubin 0.7 AST 29 ALT 35 Alkaline Phosphatase 86 Troponin I Total Protein 6.3 Albumin 3.4 L Globulin 2.9 Triglycerides Cholesterol LDL Cholesterol, Calc VLDL Cholesterol HDL Cholesterol Cholesterol/HDL Ratio TSH 1.98 11/07/17 09:54 Sodium Potassium Chloride Carbon Dioxide Anion Gap BUN Creatinine Glucose Mean Blood Glucose Hemoglobin A1c Calcium Total Bilirubin AST ALT Alkaline Phosphatase Troponin I Total Protein Albumin Globulin Triglycerides 139 Cholesterol 169 LDL Cholesterol, Calc 76.200 VLDL Cholesterol 27 HDL Cholesterol 65 Cholesterol/HDL Ratio 2.[address] [facility] [place] [address] PH: DD: [phone] FAX: [phone] ~DIAGNOSTIC IMAGING REPORT~ Patient: IRAJ BANDA : 1945 Sex: F Age: 72 Exam Name: NC Myocardial Multi-Spect Exam Date: 11/07/17 Report # : [id number] CPT Code: 72683 EMR/MR #: [id number] Ordering: JIMY PARIS Admiting: RASHEEDA PARKS MD. Primary: Juma Franco MD Attending: RASHEEDA PARKS MD. Signed Exam: NC OTHER HISTORY: Chest pain TECHNIQUE: Lexiscan stress test imaging of the heart was performed with 0.4 mg per 5 cc of Lexiscan administered. Subsequently 37.3 mCi of sestamibi technetium 99m was administered for the stress dose. Multi planar imaging and axial vertical horizontal planes were obtained. 24 hours later rest imaging was performed with 34.8 mCi of sestamibi technetium 99m with 3 plane imaging obtained. COMPARISON EXAM: No prior examinations available. FINDINGS: In the lateral wall from the mid segment to base there is partial decreased perfusion on the stress images which is demonstrating partial reversibility on the rest portion of the study. At the apex there is partial decreased perfusion on the stress images however on the rest images the appearance of decreased perfusion is more pronounced. No other defects identified. Ejection fraction calculated at 79%. Wall motion appears normal. CONCLUSION: 1. In the lateral wall at the mid segment to base there is partial decreased perfusion on the stress images which is demonstrating partial reversibility on the rest portion of the study. 2. Small partial decreased perfusion appearance at the apex on the stress images however the rest images demonstrated this region to have them more pronounced perfusion defect. This does not appear to represent a reversible defect though there is decreased perfusion appearance at the apex on the stress study. 3. No other reversible or fixed defects. 4. Ejection fraction 79%. Normal wall motion. [employer] 11/08/17 13:51 Verify Receipt with Nurse Verified receipt with BUSTER Charles on for LEXY Easton on 11/08 13:49 (-07:00) Dictated By: Kanu Andersen MD Signed By: 11/08/17 1350 Kanu Andersen MD [address] [facility] [place] [address] PH: DD: [phone] FAX: [phone] ~DIAGNOSTIC IMAGING REPORT~ Patient: IRAJ BANDA : 1945 Sex: F Age: 72 Exam Name: US Abdomen Limited Exam Date: 11/06/17 Report # : [id number] CPT Code: 10111 EMR/MR #: [id number] Ordering: JIMY PARIS Admiting: RASHEEDA PARKS MD. Primary: Juma Franco MD Attending: RASHEEDA PARKS MD. Signed EXAM: US Abdomen Limited, Right Upper Quadrant CLINICAL HISTORY: Physician Notes: Tech Comments: TECHNIQUE: Real-time ultrasound of the right upper quadrant with image documentation. COMPARISON: CT 05/01/17 FINDINGS: Liver: Hepatomegaly, 19.8 cm. Echogenic liver suggesting fatty infiltration or hepatocellular disease. Gallbladder: No gallstones or biliary ductal dilatation. Common bile duct: Unremarkable as visualized. Common bile duct measures 4 mm Pancreas: Pancreas is obscured. Right kidney: Right kidney measures 10.6 cm. No hydronephrosis. Aorta: Limited assessment. No apparent aneurysm. IMPRESSION: Hepatomegaly, 19.8 cm. Echogenic liver suggesting fatty infiltration or hepatocellular disease. No gallstones or biliary ductal dilatation. Dictated By: Debra Meza MD Signed By: 11/06/17 1859 Debra Meza MD [address] [place] [address] PH: DD: [phone] FAX: [phone] ~DIAGNOSTIC IMAGING REPORT~ Patient: IRAJ BANDA : 1945 Sex: F Age: 72 Exam Name: CT CTA Chest Non-Coronary [facility] Exam Date: 11/04/17 Report # : [id number] CPT Code: 83113 EMR/MR #: [id number] Ordering: MAYE LOCKE Admiting: Primary: Juma Franco MD Attending: Signed CT CTA Chest Non-Coronary WWO,11/04/2017 7:46 AM: Clinical History: Chest pain and elevated d-dimer. Previous Exam: None at this facility. Findings: Multiple helically acquired CT images are obtained through the chest following the intravenous administration of 75 cc of Isovue 370, and demonstrate some mild subsegmental atelectasis in the lung bases. The pulmonary arteries are normal without filling defect or truncation to suggest pulmonary embolism. The thyroid is also unremarkable. Skeletal structures are unremarkable as well. There is no infiltrate nor effusion. Impression: No evidence of pulmonary embolism. Dictated By: 11/04/17 0836 LEATHA CAMPBELL MD. Signed By: 11/04/17 0843 LEATHA CAMPBELL MD. Patient Problems - Patient Problem List (1) Chest pain Current Visit: Yes Status: Acute Code(s): R07.9 - Chest pain, unspecified Category: Medical (2) HILL (acute kidney injury) Current Visit: Yes Status: Resolved Code(s): N17.9 - Acute kidney failure, unspecified Category: Medical (3) Diabetes 1.5, managed as type 1 Current Visit: Yes Status: Acute Code(s): E10.9 - Type 1 diabetes mellitus without complications Category: Medical (4) HTN (hypertension) Current Visit: Yes Status: Acute Code(s): I10 - Essential (primary) hypertension Qualifiers: Hypertension type: essential hypertension Qualified Code(s): I10 - Essential (primary) hypertension Category: Medical
--- NOTE | 2017-11-11 17:06 | STRESSTEST ---
[facility] Interpretive Statements This is a very pleasant 72 YO that presented with chest pain and renal failure. ruled out for NM. Has HTN and DMII, does not smoke. Resting EKG, NSR. Suad scan stress test done with stress portion today. Had a PVC, SOB that resolved. Plan: stress images today, rest images tomorrow, radiology to review images. [email or web address]
== END 2017-11-08 16:10 | disposition short-term general hospital (02) | DRG 303 ==
LOC: MED/SURG 06:31 → ER 06:31
PROVIDERS: ADMIT Internal Medicine; ATTEND Internal Medicine